=== PATIENT | female | born 1995 | race Caucasian/White ===

== ENCOUNTER → 2017-11-22 | Outpatient (CLI) | payer BC ==
--- NOTE | 2017-11-22 16:20 | KCIC ---
Left breast ultrasound: Reason for examination: Lump on clinical exam. Ultrasound examination was performed in the area of clinical concern laterally. There is some focal dense fibroglandular tissue evident in the area of clinical concern. No cystic or solid nodules are seen. No abnormal appearing lymph nodes are seen in the axilla. IMPRESSION: Dense fibroglandular tissue in the area of clinical concern. No other focal abnormality seen in the left breast. Recommend clinical follow-up. BI-RADS Category 2: Benign. "Our facility is accredited by the [employer] Mammography Program." This patient's information has been entered into a reminder system for the patient to be notified with the results of her examination and a target date for the next mammogram. Electronically signed by: Niesha Ho MD (11/22/2017 4:17 PM) [id number]
== END | disposition home or self-care (01) ==
LOC: KCIC US 14:03
PROVIDERS: ATTEND Obstetrics & Gynecology
DX: N63.20 Unspecified lump in the left breast, unspecified quadrant (principal)
CPT/HCPCS: 76641

== ENCOUNTER 2018-04-04 04:01 | Emergency (ER) | payer BC ==
[~2018-04-04] VITALS: Ht 165.1 cm; Wt 113.4 kg
[2018-04-04 04:01] VITALS: BP 143/92
--- NOTE | 2018-04-04 04:21 | PHYS DOC ---
Adult General Chief Complaint Chief Complaint: CONSTIPATION HPI HPI Patient is a 22-year-old female who presents with complaint of constipation. Patient states that she has not had a normal bowel movement in a little over a week. She states that she has been passing very small amounts of stool. She states that she eats and then later she doesn't feel very well. She states that she tries to sit on the toilet but is not able to have a bowel movement. Patient has not taken any medication to assist with a bowel movement. She was seen at urgent care on Sunday for the same complaint and she was prescribed an antibiotic and nausea medicine. She states that she has not filled these medications. Review of Systems Review of Systems Constitutional: Denies fever or chills [] Respiratory: Denies cough or shortness of breath [] Cardiovascular: No additional information not addressed in HPI [] GI: Denies vomiting or diarrhea. Complains of constipation[] : Denies dysuria or hematuria [] Integument: Denies rash or skin lesions [] Current Medications Current Medications Current Medications Medications (Trade) Dose Ordered Sig/Anay Start Time Stop Time Status Last Admin Dose Admin Magnesium Citrate (Citroma) 296 ml 1X ONCE 04/04/18 05:00 04/04/18 05:01 DC 04/04/18 04:29 296 ML Allergies Allergies Allergies Coded Allergies Type Severity Reaction Last Updated Verified No Known Drug Allergies 04/04/18 No Physical Exam Physical Exam Constitutional: Well developed, well nourished, no acute distress, non-toxic appearance. [] HENT: Normocephalic, atraumatic, bilateral external ears normal, oropharynx moist, no oral exudates, nose normal. [] Eyes: PERRLA, EOMI, conjunctiva normal, no discharge. [] Neck: Normal range of motion, no tenderness, supple, no stridor. [] Cardiovascular:Heart rate regular rhythm, no murmur [] Lungs & Thorax: Bilateral breath sounds clear to auscultation [] Abdomen: Bowel sounds normal, soft, no tenderness. [] Current Patient Data Vital Signs Vital Signs Date Time Temp Pulse Resp B/P (MAP) Pulse Ox O2 Delivery O2 Flow Rate FiO2 04/04/18 04:01 97.9 110 20 143/92 (109) 98 Room Air 97.9 EKG EKG [] Radiology/Procedures Radiology/Procedures [] Course & Med Decision Making Course & Med Decision Making Pertinent Labs and Imaging studies reviewed. (See chart for details) [] Dragon Disclaimer Dragon Disclaimer This electronic medical record was generated, in whole or in part, using a voice recognition dictation system. Departure Departure Impression: Primary Impression: Constipation Disposition: 01 HOME, SELF-CARE Condition: STABLE Referrals: NO PCP (PCP) Patient Instructions: Constipation, Adult Scripts Lactulose (LACTULOSE) 20 Gm/30 Ml Solution 20 GM PO DAILY PRN for CONSTIPATION, #900 ML Prov: MIKE REYNOSO Jr. DO 04/04/18 Problem Qualifiers Primary Impression: Constipation Constipation type: unspecified constipation type Qualified Codes: K59.00 - Constipation, unspecified MIKE REYNOSO Jr. DO Apr 04, 2018 04:21
[2018-04-04] MEDS ORDERED: MAGNESIUM CITRATE 296 ML SOLUTION. PO ONE (05:00)
[2018-04-04] MEDS ORDERED: LACT20SO PO (05:04)
== END 2018-04-04 05:16 | disposition home or self-care (01) ==
LOC: ER 04:01
DX: K59.00 Constipation, unspecified (principal)
CPT/HCPCS: 99283